=== PATIENT | female | born 1955 ===

== ENCOUNTER 2017-03-12 13:31 | Inpatient (IN) | payer OTHER ==
[2017-03-12] MEDS ORDERED: Albuterol-Ipratrop 3 mg / 0.5 (3 ml) UD INH STA ×3 (14:23→16:50)
[2017-03-12] MEDS ORDERED: Methocarbamol 750 MG TAB PO STA (14:24)
--- NOTE | 2017-03-12 15:04 | ED PDOC ---
HPI: General Adult Time Seen by Provider: 03/12/17 13:55 Chief Complaint (Nursing): Back Pain Chief Complaint (Provider): Back Pain and Cough History Per: Patient History/Exam Limitations: no limitations Onset/Duration Of Symptoms: Days (x1 week) Current Symptoms Are (Timing): Still Present Additional Complaint(s): Criss yBrd is a 61 year old female with a past medical histroy of hypothyroidism, hypertension, and diabetes, who presents to the ED with two complaints. First, patient complains of lower back pain that has been ongoing for the past week, and progressively worsening. She notes the pain began after bending down while sweeping, and when returning to a standing position, she notes she felt a pulling pain across her lower back. She denies any radiation of pain into her legs, parethesias, dysuria, and bladder/bowel problems. She states pain is exacerbated by coughing and movement. Reports having similar pain in the past, but not this bad. Also reports taking 800 mg Ibuprofen last night.and a cough x1 week. Patient also presents complaining of a congested cough that is productive of yellow sputum and associated with nasal congestion and wheezing. Denies sore throat or fever. Also denies taking any medication for cough symptoms. PMD: Dr. Albert Fowler MD Past Medical History Reviewed: Historical Data, Nursing Documentation, Vital Signs Vital Signs: Last Vital Signs Temp 97.6 F 03/12/17 22:03 Pulse 98 H 03/12/17 22:03 Resp 18 03/12/17 22:03 BP 167/69 H 03/12/17 22:03 Pulse Ox 99 03/12/17 22:03 - Medical History PMH: Diabetes, HTN, Hypothyroidism - Family History Family History: States: Unknown Family Hx - Home Medications Home Medications: Ambulatory Orders Medication Instructions Recorded Clobetasol 0.05% [Temovate CREAM] 1 appl TOP DAILY 05/30/16 Levothyroxine [Synthroid] 75 mcg PO DAILY 05/30/16 PARoxetine [Paxil] 10 mg PO DAILY 05/30/16 Simvastatin 20 mg PO DAILY 05/30/16 metFORMIN [glucOPHAGE] 500 mg PO BID 05/30/16 - Allergies Allergies/Adverse Reactions: Allergies Allergy/AdvReac Type Severity Reaction Status Date / Time codeine Allergy SHORTNESS Verified 03/12/17 15:12 OF BREATH Penicillins Allergy ANAPHYLAXIS Verified 03/12/17 13:37 Review of Systems ROS Statement: Except As Marked, All Systems Reviewed And Found Negative Constitutional: Negative for: Fever ENT: Positive for: Nose Congestion. Negative for: Throat Pain Respiratory: Positive for: Cough (productive), Sputum (yellow), Wheezing Gastrointestinal: Negative for: Constipation Genitourinary Female: Negative for: Dysuria, Frequency, Incontinence Musculoskeletal: Positive for: Back Pain (lower). Negative for: Leg Pain Neurological: Negative for: Numbness Physical Exam - Reviewed Nursing Documentation Reviewed: Yes Vital Signs Reviewed: Yes - Physical Exam Appears: Positive for: In Acute Distress (Mild painful distress) Head Exam: Positive for: ATRAUMATIC Skin: Positive for: Normal Color Eye Exam: Positive for: Normal appearance ENT: Positive for: Nasal Congestion Respiratory: Positive for: Wheezing (Audible expiratory wheeze) Back: Positive for: Other (Tenderness to right paralumbar muscles). Negative for: Vertebral Tenderness Neurologic/Psych: Positive for: Alert, Oriented (x3) - Laboratory Results Result Diagrams: 03/12/17 20:10 03/12/17 20:10 - ECG ECG: Positive for: Interpreted By Me ECG Rhythm: Positive for: Sinus Rhythm, ST/T Changes, Nonspecific Changes Interpretation Of ECG: NSR at 98 bpm, (+)nonspecific ST-T wave abnormalities as read by [facility] and ED MD. Rate: 98 O2 Sat by Pulse Oximetry: 99 (RA) Pulse Ox Interpretation: Normal Medical Decision Making Medical Decision Making: Time: 14:23 Initial Impression: Back pain and cough Plan: --X-Ray Chest two views --Duoneb 3 ml INH --Robaxin 750 mg PO --Tylenol 975 mg PO --Reevaluation On reevaluation, patient with persistent expiratory wheezing. Solu-medrol and Duoneb x2 ordered. On second reevaluation, patient with improvement of symptoms, but is still reporting some lower back pain. Toradol IM ordered. Patient with mild persistent expiratory wheeze. Albuterol neb x 1 ordered. On reevaluation, patient with some mild improvement in symptoms, but remains tachypneic at 28 breaths per minute. Repeat pulse ox 98% on RA. Patient speaking in full sentences with mild shortness of breath. Repeat lung exam reveals tight air exchange, but reveals resolution of wheezing. Case discussed with Dr. [facility], who admits for patient' s PMD, Dr. Leos, and case discussed. She agrees with admission. Scribe Attestation: Documented by Tip Olmedo, acting as a scribe for Rosita Champion PA-C Provider Scribe Attestation: All medical record entries made by the Scribe were at my direction and personally dictated by me. I have reviewed the chart and agree that the record accurately reflects my personal performance of the history, physical exam, medical decision making, and the department course for this patient. I have also personally directed, reviewed, and agree with the discharge instructions and disposition. Disposition - Clinical Impression Clinical Impression: Bronchitis, Status asthmaticus, Back pain, Cough - Patient ED Disposition Is Patient to be Admitted: Yes Discussed With : Kerrie Doctor Will See Patient In The: Hospital Counseled Patient/Family Regarding: Studies Performed, Diagnosis - Disposition Disposition Time: 21:39 Condition: STABLE - Pt Status Changed To: Hospital Disposition Of: Observation
[2017-03-12] MEDS ORDERED: Albuterol-Ipratrop 3 mg / 0.5 (3 ml) UD ONE ×3 (15:06→17:24)
--- NOTE | 2017-03-12 16:37 | RAD ---
HISTORY: cough COMPARISON: No prior. TECHNIQUE: Chest PA and lateral FINDINGS: LUNGS: Linear areas of chronic scarring/ fibrosis of right upper lobe the with slight with questionable slight retraction of the right suprahilar - paratracheal region. Suspect minor left basilar atelectasis. PLEURA: No significant pleural effusion identified. No pneumothorax apparent. CARDIOVASCULAR: Normal. OSSEOUS STRUCTURES: No significant abnormalities. VISUALIZED UPPER ABDOMEN: Normal. OTHER FINDINGS: None. IMPRESSION: Chronic scarring/fibrosis right upper lobe. Minor left basilar atelectasis.
[2017-03-12] MEDS ORDERED: Albuterol 0.083% Inhal Sol (2.5 mg/3 mL) UD INH STA (18:18)
[2017-03-12] MEDS ORDERED: Albuterol 0.083% Inhal Sol (2.5 mg/3 mL) UD ONE (18:56)
[2017-03-12 20:23] LABS: BASO % 0.4 % (0.0-2.0); EOS # 0.1 K/uL (0.0-0.7); EOS % 0.8 % (0.0-4.0); HEMATOCRIT 38.3 % (34.0-47.0); LYMPH # 1.3 K/uL (1.0-4.3); LYMPH % 13.3 % (20.0-40.0); MEAN CELL VOLUME 92.6 fl (81.0-99.0); MEAN CORPUSCULAR HEMOGLOBIN 30.2 pg (27.0-31.0); MEAN CORPUSCULAR HGB CONC 32.6 g/dL (33.0-37.0); MEAN PLATELET VOLUME 8.6 fl (7.2-11.7); MONO # 0.4 K/uL (0.0-0.8); MONO % 4.2 % (0.0-10.0); NEUT # 7.8 K/uL (1.8-7.0); NEUT % 81.3 % (50.0-75.0); RED CELL DISTRIBUTION WIDTH 13.6 % (11.5-14.5); WHITE BLOOD COUNT 9.6 K/uL (4.8-10.8)
[2017-03-12 20:34] LABS: ALB/GLOB RATIO 1.2 (1.0-2.1); ALKALINE PHOSPHATASE 64 U/L (38-126); ALT/SGPT 29 U/L (9-52); AST/SGOT 24 U/L (14-36); BILIRUBIN,TOTAL 0.3 mg/dl (0.2-1.3); BLOOD UREA NITROGEN 22 mg/dl (7-17); CALCIUM 9.4 mg/dL (8.4-10.2); CARBON DIOXIDE 25 mmol/L (22-30); CHLORIDE 105 mmol/L (98-107); GFR AFRICAN-AMERICAN > 60; GLUCOSE,RANDOM 248 mg/dL (65-105); POTASSIUM 3.9 MMOL/L (3.6-5.0); SODIUM 142 mmol/l (132-148); TOTAL PROTEIN 7.9 G/DL (6.3-8.2)
[2017-03-12] MEDS ORDERED: Oxycodone/Acetaminophen 5/325 mg Tab PO PRN (22:26)
[2017-03-12] MEDS ORDERED: Sodium Chloride 3% for Inhalation 4 ML VIAL.NEB IH PRN (22:26)
--- NOTE | 2017-03-12 23:04 | CP.PCM.HP ---
<Tayler Macdonald - Last Filed: 03/13/17 07:04> History of Present Illness - History of Present Illness History of Present Illness: 61 year old female with PMH of HTN, HLD, Prediabetes, Hypothyroidism. Anxiety presented with complaints of back pain for past few days. She was found to be tachypneic and dyspneic in the ED with audible wheezing. Complained of cough and shortness of breath for past week. She has no hx of asthma. Never used an inhaler, she is non smoker. No recent travel or sick contacts. She denies chest pain, nausea, vomiting, abdominal pain, diarrhea, constipation. During the interview patient is visibly in respiratory distress, tachypneic, dyspneic, unable to speak in full sentences, however oxygen saturation is 98%. Her back pain began after she was cleaning, stood up quickly. She states she was trying to multitask while cleaning. Currently back pain is 7/10 pain, in lumbar region, paraspinal, nonradiating pain. PMD: Dr. Fowler PMH: HTN, HLD, Hypothyroid, Prediabetes, Hep C- s/p treatment, Anxiety, Vertigo Medications: Synthroid 75mcg, Metformin 500mg daily, Simvastatin 20mg, Paroxetine 10mg Allergies: denies, as per chart: codeine, PCN Surgical Hx: BTL Social: no tobacco use FMHx: Present on Admission - Present on Admission Any Indicators Present on Admission: No Review of Systems - Constitutional Constitutional: absent: Chills, Fever, Weight Gain, Weight Loss - EENT Eyes: absent: Change in Vision Nose/Mouth/Throat: absent: Nasal Obstruction, Facial Pain - Cardiovascular Cardiovascular: Dyspnea. absent: Chest Pain, Palpitations, Pedal Edema Past Patient History - Infectious Disease Hx of Infectious Diseases: None - Past Medical History & Family History Past Medical History?: Yes - Past Social History Smoking Status: Never Smoked - CARDIAC Hx Hypertension: Yes - ENDOCRINE/METABOLIC Hx Hypothyroidism: Yes - PSYCHIATRIC Hx Substance Use: No - SURGICAL HISTORY Hx Surgeries: Yes Hx Tubal Ligation: Yes Meds Allergies/Adverse Reactions: Allergies Allergy/AdvReac Type Severity Reaction Status Date / Time codeine Allergy SHORTNESS Verified 03/12/17 15:12 OF BREATH Penicillins Allergy ANAPHYLAXIS Verified 03/12/17 13:37 Physical Exam - Constitutional Appears: In Acute Distress (respiratory) - Head Exam Head Exam: ATRAUMATIC, NORMAL INSPECTION, NORMOCEPHALIC - Eye Exam Eye Exam: Normal appearance, PERRL - ENT Exam ENT Exam: Mucous Membranes Moist - Respiratory Exam Respiratory Exam: Clear to Auscultation Bilateral (except for left mid lung: mild inspiratory crackles), Respiratory Distress. absent: Decreased Breath Sounds, Prolonged Expiratory Phase, Rales, Rhonchi, Wheezes, Stridor - Cardiovascular Exam Cardiovascular Exam: Tachycardia, REGULAR RHYTHM, +S1, +S2 - GI/Abdominal Exam GI & Abdominal Exam: Normal Bowel Sounds, Soft. absent: Diminished Bowel Sounds , Distended, Guarding, Organomegaly, Tenderness - Rectal Exam Rectal Exam: Deferred - Extremities Exam Extremities exam: Positive for: normal inspection. Negative for: calf tenderness, pedal edema, tenderness - Back Exam Back exam: NORMAL INSPECTION, paraspinal tenderness (lumbar region, right side) - Neurological Exam Neurological exam: Alert, CN II-XII Intact, Oriented x3 - Psychiatric Exam Psychiatric exam: Normal Affect, Normal Mood - Skin Skin Exam: Dry, Intact, Normal Color, Warm Results - Vital Signs Recent Vital Signs: Last Vital Signs Temp 97.6 F 03/12/17 22:03 Pulse 98 H 03/12/17 22:03 Resp 18 03/12/17 22:03 BP 167/69 H 03/12/17 22:03 Pulse Ox 99 03/12/17 22:03 - Labs Result Diagrams: 03/12/17 20:10 03/12/17 20:10 Labs: Laboratory Results - last 24 hr 03/12/17 03/12/17 03/12/17 20:10 20:10 21:00 WBC 9.6 RBC 4.13 Hgb 12.5 Hct 38.3 MCV 92.6 MCH 30.2 MCHC 32.6 L RDW 13.6 Plt Count 259 MPV 8.6 Neut % (Auto) 81.3 H Lymph % (Auto) 13.3 L [place] % (Auto) 4.2 Eos % (Auto) 0.8 Baso % (Auto) 0.4 Neut # 7.8 H Lymph # 1.3 [place] # 0.4 Eos # 0.1 Baso # 0.0 Sodium 142 Potassium 3.9 Chloride 105 Carbon Dioxide 25 Anion Gap 16 BUN 22 H Creatinine 1.0 Est GFR ( Amer) > 60 Est GFR (Non-Af Amer) 57 Random Glucose 248 H Calcium 9.4 Total Bilirubin 0.3 AST 24 ALT 29 Alkaline Phosphatase 64 Troponin I 0.0130 NT-Pro-B Natriuret Pep 64.6 Total Protein 7.9 Albumin 4.3 Globulin 3.6 Albumin/Globulin Ratio 1.2 - EKG Data EKG Interpreted by: Myself - Imaging and Cardiology Chest x-ray Status: Image reviewed by me, Report reviewed by me Additional comment: Chest PA and lateral FINDINGS: LUNGS: Linear areas of chronic scarring/ fibrosis of right upper lobe the with slight with questionable slight retraction of the right suprahilar - paratracheal region. Suspect minor left basilar atelectasis. PLEURA: No significant pleural effusion identified. No pneumothorax apparent. CARDIOVASCULAR: Normal. OSSEOUS STRUCTURES: No significant abnormalities. VISUALIZED UPPER ABDOMEN: Normal. OTHER FINDINGS: None. IMPRESSION: Chronic scarring/fibrosis right upper lobe. Minor left basilar atelectasis. Assessment & Plan (1) Asthma exacerbation Assessment and Plan: 61 year old female with pmh of prediabetes, htn, hld, hypothyroidism, anxiety presented with back pain, cough and dyspnea for past week, admitted for acute asthma exacerbation with respiratory distress. Patient continued to be tachypneic and dyspneic after 3 duonebs and solumedrol. However there was no wheezing to auscultation after these treatments. Her oxygen saturation was 98% on room air. She did not find treatment helped her symptoms. EKG nonspecific ST[facility] abnormality, Troponin was negative x 1, repeat trop ordered. repeat ekg in AM No recent travel or hx of coagulopathy, no leg pain, hommans negative to suspect DVT/PE Sx possibly triggered by acute viral infection. Influenza ordered. PT is afebrile without leukocytosis, making bacterial infection unlikely. ABG ordered. Start albuterol q4 hours, prednisone 40mg po daily in am start tylenol q 4 and toradol q6 PRN for back pain monitory respiratory status Status: Acute (2) Back pain Assessment and Plan: likely muscle spasm, tylenol/toradol/lidoderm patch for pain Status: Acute (3) Prediabetes Assessment and Plan: resume metformin 500mg po daily heart healthy diet Status: Chronic (4) Hypothyroidism Assessment and Plan: low tsh synthroid 75mcg, held likely needs lower dose. Status: Chronic (5) DVT prophylaxis Assessment and Plan: lovenox Status: Acute (6) Anxiety Status: Chronic (7) Hyperlipidemia Status: Chronic <Augustine Campoverde - Last Filed: 03/15/17 07:03> Results - Vital Signs Recent Vital Signs: Last Vital Signs Temp 97.7 F 03/14/17 15:55 Pulse 75 03/14/17 15:55 Resp 18 03/14/17 15:55 BP 165/78 H 03/14/17 15:55 Pulse Ox 97 03/14/17 15:55 - Labs Result Diagrams: 03/12/17 20:10 03/12/17 20:10 Attending/Attestation - Attestation I have personally seen and examined this patient.: Yes I have fully participated in the care of the patient.: Yes I have reviewed all pertinent clinical information: Yes
[2017-03-13 00:15] LABS: T4 11.4 ug/dl (5.5-11.0)
[2017-03-13 00:29] LABS: THYROID STIMULATING HORMONE 0.23 mIU/ML (0.46-4.68)
[2017-03-13] MEDS: Lidocaine 5% Patch TD SCH ×2 (00:50→09:39)
[2017-03-13] MEDS ORDERED: Levothyroxine 75 MCG TAB PO SCH (06:30)
--- NOTE | 2017-03-13 08:44 | CP.PCM.PN ---
Subjective - Date & Time of Evaluation Date of Evaluation: 03/13/17 Time of Evaluation: 07:30 - Subjective Subjective: 61 YO F was seen at bedside with attending. Patient appears slightly anxious and in pain. Denies any SOB currently. Patient is also complaining of headache in the fontal region , which appears to have worsened this morning She denies any weakness in lower extremity. Denies any problems with bowl and bladder. - Denies any chest pain, nausea or vomiting Objective - Vital Signs/Intake and Output Vital Signs (last 24 hours): Temp Pulse Resp BP Pulse Ox 97.4 F L 70 18 156/73 H 97 03/13/17 08:07 03/13/17 08:23 03/13/17 08:07 03/13/17 08:07 03/13/17 08:07 - Medications Medications: Current Medications Acetaminophen (Tylenol 325mg Tab) 325 mg PO Q4 PRN PRN Reason: Pain, Mild (1-3) Acetaminophen (Tylenol 325mg Tab) 650 mg PO Q4 PRN PRN Reason: Headache Last Admin: 03/13/17 05:04 Dose: 650 mg Albuterol Sulfate (Albuterol 0.083% Inhal Marivel (2.5 Mg/3 Ml) Ud) 2.5 mg INH RQ4 NGOZI Last Admin: 03/13/17 07:50 Dose: 2.5 mg Atorvastatin Calcium (Lipitor) 10 mg PO DAILY NGOZI Dexamethasone (Decadron) 2 mg PO Q12 NGOZI Enoxaparin Sodium (Lovenox) 40 mg SC DAILY NGOZI PRN Reason: Protocol Ketorolac Tromethamine (Toradol) 10 mg IVP Q6 PRN PRN Reason: Pain, moderate (4-7) Lidocaine (Lidoderm) 1 ea TD DAILY [facility] Last Admin: 03/13/17 00:50 Dose: 1 ea Metformin HCl (Glucophage) 500 mg PO BID NGOZI Metoprolol Succinate (Toprol Xl) 25 mg PO DAILY NGOZI Paroxetine HCl (Paxil) 10 mg PO DAILY [facility] - Labs Labs: 03/12/17 20:10 03/12/17 20:10 - Constitutional Appears: No Acute Distress - Head Exam Head Exam: NORMAL INSPECTION - Respiratory Exam Respiratory Exam: Clear to Ausculation Bilateral, NORMAL BREATHING PATTERN. absent: Rales, Rhonchi, Wheezes - Cardiovascular Exam Cardiovascular Exam: REGULAR RHYTHM, +S1, +S2 - GI/Abdominal Exam GI & Abdominal Exam: Soft, Normal Bowel Sounds - Extremities Exam Extremities Exam: Normal Inspection. absent: Calf Tenderness - Neurological Exam Neurological Exam: Alert, Awake, CN II-XII Intact, Oriented x3 - Skin Skin Exam: Normal Color, Warm Assessment and Plan - Assessment and Plan (Free Text) Assessment: 61 year old female with pmh of prediabetes, htn, hld, hypothyroidism, anxiety presented with back pain, cough and dyspnea for past week, admitted for acute asthma exacerbation with respiratory distress. (1)Broncospasm vs new onset of asthma Assessment and Plan: - Sx possibly triggered by acute viral infection. - PT is afebrile without leukocytosis, making bacterial infection unlikely. - F/U with ABG - Continue albuterol q4 hours- - monitory respiratory status - Age adjusted D Dimer is negative: Patients D dimer is 400. Age cut off is 600. - Tropnin x 2 negative - Pulmonary function test will be on outpatient. - CT sinuses Status: Acute (2) Headache - CT sinuses - Tylenol Q4 (3) Back pain Assessment and Plan: - likely muscle spasm, tylenol/toradol/lidoderm patch for pain - start tylenol q 4 and toradol q6 PRN for back pain - Cyclobenzaprine 5 mg TID - PT/OT Status: Acute (4) Prediabetes Assessment and Plan: resume metformin 500mg po daily heart healthy diet Status: Chronic (5) Hypothyroidism Assessment and Plan: low tsh synthroid dosage decreased from 75 to 50 Status: Chronic (6) HTN - Metoprolol Succinate 25mg PO (7) DVT prophylaxis Assessment and Plan: lovenox Status: Acute (8) Anxiety Status: Chronic (9) Hyperlipidemia Status: Chronic - Continue with home medication
[2017-03-13] MEDS: Enoxaparin 40 mg Syringe SC SCH (09:43)
--- NOTE | 2017-03-13 10:08 | CP.PCM.CON ---
History of Present Illness - History of Present Illness History of Present Illness: This 61 year old female initially presented to the emergency department because of severe lower back pain. She also began to feel SOB with audible wheezing and was given aerosol therapy and corticosteroids. Her symptoms didn't improve on this therapy initially and she was admitted to the hospital. She has had parenteral corticosteroids and her symptoms have improved overnight. She does relate a history of dyspnea upon climbing stairs at home which results in chest tightness and wheezing requiring her to rest and allow her symptoms to subside spontaneously. There is no prior history of bronchial asthma nor is there any family history of asthma. She does relate multiple seasonal allergies. She denies any prior knowledge of sinusitis or nasal polyps. 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 - NEUROLOGICAL Hx Neurological Disorder: No - HEENT Hx HEENT Problems: No - RENAL Hx Chronic Kidney Disease: No - ENDOCRINE/METABOLIC Hx Hypothyroidism: Yes - HEMATOLOGICAL/ONCOLOGICAL Hx Blood Disorders: No - INTEGUMENTARY Hx Dermatological Problems: No - MUSCULOSKELETAL/RHEUMATOLOGICAL Hx Back Pain: Yes Hx Falls: No - GASTROINTESTINAL Hx Gastrointestinal Disorders: No - GENITOURINARY/GYNECOLOGICAL Hx Genitourinary Disorders: No - PSYCHIATRIC Hx Psychophysiologic Disorder: No Hx Substance Use: No - SURGICAL HISTORY Hx Surgeries: Yes Hx Tubal Ligation: Yes - ANESTHESIA Hx Anesthesia: Yes Hx Anesthesia Reactions: No Meds Allergies/Adverse Reactions: Allergies Allergy/AdvReac Type Severity Reaction Status Date / Time codeine Allergy SHORTNESS Verified 03/12/17 15:12 OF BREATH Penicillins Allergy ANAPHYLAXIS Verified 03/12/17 13:37 - Medications Medications: Current Medications Acetaminophen (Tylenol 325mg Tab) 325 mg PO Q4 PRN PRN Reason: Pain, Mild (1-3) Acetaminophen (Tylenol 325mg Tab) 650 mg PO Q4 PRN PRN Reason: Headache Last Admin: 03/13/17 05:04 Dose: 650 mg Albuterol Sulfate (Albuterol 0.083% Inhal Marivel (2.5 Mg/3 Ml) Ud) 2.5 mg INH RQ4 [facility] Last Admin: 03/13/17 07:50 Dose: 2.5 mg Atorvastatin Calcium (Lipitor) 10 mg PO DAILY [facility] Last Admin: 03/13/17 09:42 Dose: 10 mg Dexamethasone (Decadron) 2 mg PO Q12 [facility] Enoxaparin Sodium (Lovenox) 40 mg SC DAILY [facility] PRN Reason: Protocol Last Admin: 03/13/17 09:43 Dose: 40 mg Ketorolac Tromethamine (Toradol) 10 mg IVP Q6 PRN PRN Reason: Pain, moderate (4-7) Lidocaine (Lidoderm) 1 ea TD DAILY [facility] Last Admin: 03/13/17 09:39 Dose: 1 ea Metformin HCl (Glucophage) 500 mg PO BID [facility] Last Admin: 03/13/17 09:39 Dose: 500 mg Metoprolol Succinate (Toprol Xl) 25 mg PO DAILY [facility] Paroxetine HCl (Paxil) 10 mg PO DAILY [facility] Last Admin: 03/13/17 09:42 Dose: 10 mg Physical Exam - Additional Findings Additional findings: Well-nourished, well-developed, seated on the edge of the bed in moderate distress because of back pain. No dependent edema or rashes noted. No cyanosis or ecchymosis. No palpable lymphadenopathy. Pharynx is pink and mucous membranes are moist. No exudate. Nares are patent bilaterally. No bleeding or exudate seen. No tenderness over the maxillary sinuses. Conjunctivae are pink and there is no scleral icterus. Neck is supple and trachea is midline. No neck vein distention or carotid bruit. No dullness on chest percussion. Equal expansion. Normal vocal tactile fremitus. Breath sounds are well heard bilaterally. Scattered sonorous and sibilant rhonchi are appreciated in both lungs. No audible wheezing but slight prolongation of the expiratory phase is noted. No bronchial breathing or egophony. Heart sounds are well heard and the rhythm is regular. No murmur. Abdomen soft and nontender. Normal bowel sounds. Results - Vital Signs Recent Vital Signs: Last Vital Signs Temp 97.4 F L 03/13/17 08:07 Pulse 70 03/13/17 08:23 Resp 18 03/13/17 08:07 BP 156/73 H 03/13/17 08:07 Pulse Ox 97 03/13/17 08:07 - Labs Result Diagrams: 03/12/17 20:10 03/12/17 20:10 Labs: Laboratory Results - last 24 hr 03/12/17 03/12/17 03/12/17 20:10 20:10 21:00 WBC 9.6 RBC 4.13 Hgb 12.5 Hct 38.3 MCV 92.6 MCH 30.2 MCHC 32.6 L RDW 13.6 Plt Count 259 MPV 8.6 Neut % (Auto) 81.3 H Lymph % (Auto) 13.3 L [place] % (Auto) 4.2 Eos % (Auto) 0.8 Baso % (Auto) 0.4 Neut # 7.8 H Lymph # 1.3 [place] # 0.4 Eos # 0.1 Baso # 0.0 D-Dimer, Quantitative Sodium 142 Potassium 3.9 Chloride 105 Carbon Dioxide 25 Anion Gap 16 BUN 22 H Creatinine 1.0 Est GFR ( Amer) > 60 Est GFR (Non-Af Amer) 57 Random Glucose 248 H Calcium 9.4 Total Bilirubin 0.3 AST 24 ALT 29 Alkaline Phosphatase 64 Troponin I 0.0130 NT-Pro-B Natriuret Pep 64.6 Total Protein 7.9 Albumin 4.3 Globulin 3.6 Albumin/Globulin Ratio 1.2 Thyroxine (T4) TSH 3rd Generation Influenza Typ A,B (EIA) 03/12/17 03/12/17 03/13/17 22:34 23:46 04:20 WBC RBC Hgb Hct MCV MCH MCHC RDW Plt Count MPV Neut % (Auto) Lymph % (Auto) [place] % (Auto) Eos % (Auto) Baso % (Auto) Neut # Lymph # [place] # Eos # Baso # D-Dimer, Quantitative Sodium Potassium Chloride Carbon Dioxide Anion Gap BUN Creatinine Est GFR ( Amer) Est GFR (Non-Af Amer) Random Glucose Calcium Total Bilirubin AST ALT Alkaline Phosphatase Troponin I 0.0140 NT-Pro-B Natriuret Pep Total Protein Albumin Globulin Albumin/Globulin Ratio Thyroxine (T4) 11.4 H TSH 3rd Generation 0.23 L Influenza Typ A,B (EIA) Negative for flu a/b 03/13/17 08:35 WBC RBC Hgb Hct MCV MCH MCHC RDW Plt Count MPV Neut % (Auto) Lymph % (Auto) [place] % (Auto) Eos % (Auto) Baso % (Auto) Neut # Lymph # [place] # Eos # Baso # D-Dimer, Quantitative 453 H Sodium Potassium Chloride Carbon Dioxide Anion Gap BUN Creatinine Est GFR ( Amer) Est GFR (Non-Af Amer) Random Glucose Calcium Total Bilirubin AST ALT Alkaline Phosphatase Troponin I NT-Pro-B Natriuret Pep Total Protein Albumin Globulin Albumin/Globulin Ratio Thyroxine (T4) TSH 3rd Generation Influenza Typ A,B (EIA) Assessment & Plan (1) Bronchospasm Status: Acute Priority: High (2) Bronchitis Status: Acute Priority: High (3) Sinusitis Status: Acute Priority: High (4) Posterior rhinorrhea Status: Acute Priority: High (5) Mantoux: positive Status: Chronic Priority: Medium Comment: Treated with 6 months prophylaxis therapy. - Assessment and Plan (Free Text) Assessment: Historically she does admit to exercise induced SOB with wheezing...she may indeed have EIA with exacerbation related to current infection. Continue with the present regimen, and certain allergy testing has been requested. CT paranasal sinuses also requested. She is a former cigarette smoker who quit about 20 years ago, but did smoke 1PPD + for >20 years. This could be COPD related. She will need to have pulmonary function testing done after the acute event has subsided, as an outpatient. - Date & Time Date: 03/13/17 Time: 10:08
[2017-03-13] MEDS: Metoprolol Succinate 25 mg XL Tab PO SCH (10:15)
[2017-03-13] MEDS ORDERED: Alum-Mag Hydrox-Simethicone Susp (30 mL) PO PRN (11:54)
--- NOTE | 2017-03-13 16:13 | CT ---
PROCEDURE: CT SINUSES WITHOUT CONTRAST HISTORY: sinusitis COMPARISON: None TECHNIQUE: Contiguous axial CT images of the paranasal sinuses were obtained. Coronal and sagittal reformats were generated. Radiation dose: Total exam DLP = 649.56 mGy-cm. This CT exam was performed using one or more of the following dose reduction techniques: Automated exposure control, adjustment of the mA and/or kV according to patient size, and/or use of iterative reconstruction technique. FINDINGS: FRONTAL SINUSES: Well developed and aerated without destructive bony lesion appreciable. ETHMOID SINUSES: Well developed and aerated without destructive bony lesion appreciable. SPHENOID SINUSES: Well developed and aerated without destructive bony lesion appreciable. MAXILLARY SINUSES: Well developed and aerated without destructive bony lesion appreciable. SINUS DRAINAGE: The bilateral frontal recesses and sphenoethmoid recesses appear widely patent and clear. The left ostiomeatal unit is unremarkable appearing. The right ostiomeatal unit is remarkable only for narrowing of the right hiatus semilunaris due to prominent pneumatization of the an anterior to middle right ethmoid air cell. NASAL SEPTUM: Rightward deviation. No destructive lesion. MASS: None. SKULL BASE: Unremarkable. TEMPORAL BONES: Middle ears and mastoid grossly unremarkable. OTHER FINDINGS: None. IMPRESSION: No CT pattern suggest sinusitis of any of the perineal sinuses, however, there is mild narrowing of the right hiatus semilunaris due to a prominent right ethmoid air cell. Rightward nasal septal deviation.
--- NOTE | 2017-03-13 17:46 | CARD ---
APPROVED REPORT EKG Measurement Heart [id number] <Conclusion> Normal sinus rhythm Nonspecific ST and T wave abnormality Abnormal ECG
[2017-03-13] MEDS ORDERED: Albuterol 0.083% Inhal Sol (2.5 mg/3 mL) UD INH PRN (17:53)
[2017-03-13] MEDS ORDERED: Albuterol 0.083% Inhal Sol (2.5 mg/3 mL) UD INH SCH (22:33)
[2017-03-13 23:55] VITALS: RESP 18
[2017-03-14] MEDS ORDERED: Levothyroxine 50 MCG TAB PO SCH (06:30)
[2017-03-14] MEDS: Lidocaine 5% Patch TD SCH (09:16)
[2017-03-14] MEDS: Enoxaparin 40 mg Syringe SC SCH (09:20)
[2017-03-14] MEDS: Metoprolol Succinate 25 mg XL Tab PO SCH (09:27)
--- NOTE | 2017-03-14 09:36 | CP.PCM.PN ---
Subjective - Date & Time of Evaluation Date of Evaluation: 03/14/17 Time of Evaluation: 09:28 - Subjective Subjective: Still has complaint of lower back pain. Less dyspneic, but congested cough persists. Remains afebrile and well oxygenated. Hypertensive. Initial sputum sent to lab was oral saliva. A second sample was obtained. She is now coughing out sputum as her bronchospasm subsides. Breath sounds are present bilaterally with sonorous and sibilant rhonchi still heard. No audible wheezing or bronchial breathing. No rales appreciated. No dullness on percussion and expansion is equal. CT paranasal sinuses showed septal deviation with nasal mucosal edema. Would benefit from nasal steroid spray. Would begin LABA/ICS at this time and possibly decrease to a rescue inhaler only as she improves. Outpatient pulmonary function study after the New Year. Objective - Vital Signs/Intake and Output Vital Signs (last 24 hours): Temp Pulse Resp BP Pulse Ox 97.3 F L 67 18 176/76 H 97 03/14/17 08:00 03/14/17 09:27 03/14/17 08:00 03/14/17 09:27 03/14/17 08:00 Intake and Output: 03/13/17 03/14/17 23:59 11:59 Intake Total 1200 Balance 1200 - Medications Medications: Current Medications Acetaminophen (Tylenol 325mg Tab) 325 mg PO Q4 PRN PRN Reason: Pain, Mild (1-3) Acetaminophen (Tylenol 325mg Tab) 650 mg PO Q4 PRN PRN Reason: Headache Last Admin: 03/13/17 17:06 Dose: 650 mg Al Hydrox/Mg Hydrox/Simethicone (Maalox Plus 30 Ml) 30 ml PO Q6 PRN PRN Reason: Indigestion / Heartburn Last Admin: 03/13/17 14:35 Dose: 30 ml Albuterol Sulfate (Albuterol 0.083% Inhal Marivel (2.5 Mg/3 Ml) Ud) 2.5 mg INH RQ4 PRN PRN Reason: Shortness of Breath Atorvastatin Calcium (Lipitor) 10 mg PO DAILY [id number] Last Admin: 03/14/17 09:20 Dose: 10 mg Cyclobenzaprine HCl (Flexeril) 5 mg PO TID PRN PRN Reason: Muscle spasm Last Admin: 03/14/17 09:15 Dose: 5 mg Dexamethasone (Decadron) 2 mg PO Q12 [facility] Last Admin: 03/14/17 09:14 Dose: 2 mg Enoxaparin Sodium (Lovenox) 40 mg SC DAILY [facility] PRN Reason: Protocol Last Admin: 03/14/17 09:20 Dose: 40 mg Famotidine (Pepcid) 20 mg PO BID [facility] Last Admin: 03/14/17 09:21 Dose: 20 mg Ketorolac Tromethamine (Toradol) 10 mg IVP Q6 PRN PRN Reason: Pain, moderate (4-7) Last Admin: 03/13/17 21:35 Dose: 10 mg Levothyroxine Sodium (Synthroid) 50 mcg PO DAILY@0630 [facility] Last Admin: 03/14/17 06:25 Dose: 50 mcg Lidocaine (Lidoderm) 1 ea TD DAILY [facility] Last Admin: 03/14/17 09:16 Dose: 1 ea Metformin HCl (Glucophage) 500 mg PO BID [facility] Last Admin: 03/14/17 09:16 Dose: 500 mg Metoprolol Succinate (Toprol Xl) 25 mg PO DAILY [facility] Last Admin: 03/14/17 09:27 Dose: 25 mg Paroxetine HCl (Paxil) 10 mg PO DAILY [facility] Last Admin: 03/14/17 09:21 Dose: 10 mg - Labs Labs: 03/12/17 20:10 03/12/17 20:10 Assessment and Plan (1) Bronchospasm Status: Acute (2) Bronchitis Status: Acute (3) Sinusitis Status: Acute (4) Posterior rhinorrhea Status: Acute (5) Mantoux: positive Status: Chronic
--- NOTE | 2017-03-14 10:10 | CP.PCM.DIS ---
Provider - Provider Date of Admission: 03/13/17 12:59 Attending physician: Albert Fowler MD Time Spent in preparation of Discharge (in minutes): 30 Diagnosis - Discharge Diagnosis (1) Back pain Status: Acute (2) Bronchitis Status: Acute Priority: High Hospital Course - Lab Results Lab Results: Micro Results 03/13/17 12:53 Sputum Gram Stain - Final 03/13/17 12:53 Sputum Sputum Culture - Final Most Recent Lab Values WBC 9.6 K/uL (4.8-10.8) 03/12/17 20:10 RBC 4.13 Mil/uL (3.80-5.20) 03/12/17 20:10 Hgb 12.5 g/dL (12.0-16.0) 03/12/17 20:10 Hct 38.3 % (34.0-47.0) 03/12/17 20:10 MCV 92.6 fl (81.0-99.0) 03/12/17 20:10 MCH 30.2 pg (27.0-31.0) 03/12/17 20:10 MCHC 32.6 g/dL (33.0-37.0) L 03/12/17 20:10 RDW 13.6 % (11.5-14.5) 03/12/17 20:10 Plt Count 259 K/uL (130-400) 03/12/17 20:10 MPV 8.6 fl (7.2-11.7) 03/12/17 20:10 Neut % (Auto) 81.3 % (50.0-75.0) H 03/12/17 20:10 Lymph % (Auto) 13.3 % (20.0-40.0) L 03/12/17 20:10 [place] % (Auto) 4.2 % (0.0-10.0) 03/12/17 20:10 Eos % (Auto) 0.8 % (0.0-4.0) 03/12/17 20:10 Baso % (Auto) 0.4 % (0.0-2.0) 03/12/17 20:10 Neut # 7.8 K/uL (1.8-7.0) H 03/12/17 20:10 Lymph # 1.3 K/uL (1.0-4.3) 03/12/17 20:10 [place] # 0.4 K/uL (0.0-0.8) 03/12/17 20:10 Eos # 0.1 K/uL (0.0-0.7) 03/12/17 20:10 Baso # 0.0 K/uL (0.0-0.2) 03/12/17 20:10 D-Dimer, Quantitative 453 ng/mlDDU (0-230) H 03/13/17 08:35 Sodium 142 mmol/l (132-148) 03/12/17 20:10 Potassium 3.9 MMOL/L (3.6-5.0) 03/12/17 20:10 Chloride 105 mmol/L (98-107) 03/12/17 20:10 Carbon Dioxide 25 mmol/L (22-30) 03/12/17 20:10 Anion Gap 16 (10-20) 03/12/17 20:10 BUN 22 mg/dl (7-17) H 03/12/17 20:10 Creatinine 1.0 mg/dl (0.7-1.2) 03/12/17 20:10 Est GFR ( Amer) > 60 03/12/17 20:10 Est GFR (Non-Af Amer) 57 03/12/17 20:10 Random Glucose 248 mg/dL (65-105) H 03/12/17 20:10 Calcium 9.4 mg/dL (8.4-10.2) 03/12/17 20:10 Total Bilirubin 0.3 mg/dl (0.2-1.3) 03/12/17 20:10 AST 24 U/L (14-36) 03/12/17 20:10 ALT 29 U/L (9-52) 03/12/17 20:10 Alkaline Phosphatase 64 U/L (38-126) 03/12/17 20:10 Troponin I 0.0140 ng/mL (0.00-0.120) 03/13/17 04:20 NT-Pro-B Natriuret Pep 64.6 pg/ml (0-900) 03/12/17 20:10 Total Protein 7.9 G/DL (6.3-8.2) 03/12/17 20:10 Albumin 4.3 g/dL (3.5-5.0) 03/12/17 20:10 Globulin 3.6 gm/dL (2.2-3.9) 03/12/17 20:10 Albumin/Globulin Ratio 1.2 (1.0-2.1) 03/12/17 20:10 Thyroxine (T4) 11.4 ug/dl (5.5-11.0) H 03/12/17 23:46 TSH 3rd Generation 0.23 mIU/ML (0.46-4.68) L 03/12/17 23:46 Influenza Typ A,B (EIA) Negative for flu a/b (NEGATIVE) 03/12/17 22:34 - Hospital Course Hospital Course: 61 year old female with pmh of prediabetes, htn, hld, hypothyroidism, anxiety presented with back pain, cough and dyspnea for past week, admitted for acute bronchitis with respiratory distress (1)Broncospasm vs new onset of asthma Assessment and Plan: - Sx possibly triggered by acute viral infection. - PT is afebrile without leukocytosis, making bacterial infection unlikely. - Recieved albuterol nebulizer Q4 - Age adjusted D Dimer is negative: Patients D dimer is 400. Age cut off is 600. - Tropnin x 2 negative - [address] sinuses: WNL - Pulmonary function test will be on outpatient. (2) Headache - CT sinuses: Unremarkable - Tylenol Q4 (3) Back pain Assessment and Plan: - likely muscle spasm, tylenol/toradol/lidoderm patch for pain - Cyclobenzaprine 5 mg TID recieved - Patient has been given a script for Naproxen 500mg BID x 14 days and cyclobenzoprin 10 mg as needed given for oupatient. - Has been given a script for physiotherapy. (4) Prediabetes Assessment and Plan: resume metformin 500mg po daily heart healthy diet Status: Chronic (5) Hypothyroidism Assessment and Plan: low tsh synthroid dosage decreased from 75 to 50 Patient will need blood work to check TSH, since dosage has been adjusted in the hospital. Status: Chronic (6) HTN - Metoprolol Succinate 25mg PO - Patients blood pressure was not controlled with home medication in the hospital . Patient has been given Amlodipine 5 mg to take in adition to her home meds and to follow up with Dr. Fowler for dose adjustments. Blood pressure may be elevated secondary to the steroids and pain. Will monitor and adjust dosage outpatient. Patient has been educated regarding symptoms of hypotension and advised to stop medication if she develops symptoms. (7) Hyperlipidemia Status: Chronic - Continue with home medication - Patient is doing well. SOB has improved during the stay. She has been receiving NSAIDS, muscle relaxant, and physiotherapy during her stay. - She has been receiving nebulized albuterol during her stay. She is doing well. Symptoms have improved. Discharge Exam - Head Exam Head Exam: NORMAL INSPECTION - Eye Exam Eye Exam: Normal appearance - Respiratory Exam Respiratory Exam: Clear to PA & Lateral, NORMAL BREATHING PATTERN, UNREMARKABLE. absent: Rales, Rhonchi, Wheezes, Respiratory Distress - Cardiovascular Exam Cardiovascular Exam: REGULAR RHYTHM, +S1, +S2 - GI/Abdominal Exam GI & Abdominal Exam: Normal Bowel Sounds - Back Exam Back exam: paraspinal tenderness - Neurological Exam Neurological exam: Alert, CN II-XII Intact, Oriented x3 - Skin Skin Exam: Normal Color, Warm Discharge Plan - Discharge Medications Prescriptions: Albuterol 0.083% [Albuterol 0.083% Inhal Marivel (2.5 mg/3 ml) UD] 2.5 mg INH RQ4 PRN #1 neb PRN Reason: Shortness Of Breath amLODIPine [Norvasc] 5 mg PO DAILY 30 Days tab Famotidine [Pepcid] 20 mg PO BID #60 tab Fluticasone/Salmeterol [Advair 250-50 Diskus] 1 each IH Q12 #1 blst.w.dev Levothyroxine [Synthroid] 50 mcg PO DAILY@0630 #30 tab - Follow Up Plan Condition: STABLE Disposition: HOME/ ROUTINE Instructions: Asthma (DC), Low Back Strain (DC), Low Back Strain (GEN), Back Pain (GEN) Additional Instructions: Follow up with Dr. Fowler and Dr. Almanzar in one week after discharge - ER precausions given. - Script for Pulmonary function test given - Script for physiotherapy given. - Take Naproxen 500 mg BID x 14 days w/ food - Take Pepcid 20 BID for gastritis - Cyclobenzoprin 10mg BID as needed for pain. Do not use if driving or at work. - Follow up with TSH outpatient, since dossage was adjusted. - Amlodipine 5 mg given to patient to take for HTN in addition to her home medication, since her blood pressure was elevated during her stay. Have advised to follow up with Dr. Fowler and will adjust dosage and medication outpatient. Patient has been educated on symptoms of hypotension and advised to stop medication , if she develops any symptoms - Return to ER if symptoms reoccur or worsen Referrals: Albert Fowler MD [Staff Provider] - Jacobo Almanzar MD [Staff Provider] -
[2017-03-14] MEDS ORDERED: Fluticasone-Salmeterol 250-50mcg Diskus IH SCH (10:15)
[2017-03-14 12:23] VITALS: TEMP 97.7
[2017-03-14 15:56] VITALS: BP 165/78; PULSE 75; O2SAT 97
[2017-03-14] MEDS ORDERED: Influenza Vaccine(65YR UP)/PF 180 MCG/0.5 ML SYRINGE IM ONE (16:25)
[2017-03-14] MEDS ORDERED: Influenza Vaccine 18yr & older 0.5 ML/45 MCG SYR IM ONE (16:34)
== END 2017-03-14 17:00 | disposition home or self-care (01) | DRG 203 ==
LOC: H.ER 13:31 → H.ERHOLD 21:34 → INTOOBSV 22:23 → OBSVTOIN 22:23 → H.TEL 03-13 00:10 → OBSVTOIN 03-13 12:59
PROVIDERS: ADMIT Family Medicine; ATTEND Family Medicine
PROC: 3E0F73Z Introduction of Anti-inflammatory into Respiratory Tract, Via Natural or Artificial Opening (ICD-10-PCS; 2017-03-13)
PROC: 3E0234Z Introduction of Serum, Toxoid and Vaccine into Muscle, Percutaneous Approach (ICD-10-PCS; principal; 2017-03-14)
DX: J45.901 Unspecified asthma with (acute) exacerbation (principal); J20.9 Acute bronchitis, unspecified; J01.90 Acute sinusitis, unspecified; E11.9 Type 2 diabetes mellitus without complications; E03.9 Hypothyroidism, unspecified; E78.5 Hyperlipidemia, unspecified; J34.2 Deviated nasal septum; I10 Essential (primary) hypertension; F41.9 Anxiety disorder, unspecified; Z23 Encounter for immunization; Z79.84 Long term (current) use of oral hypoglycemic drugs; Z87.891 Personal history of nicotine dependence; Z88.6 Allergy status to analgesic agent; Z88.0 Allergy status to penicillin